=== PATIENT | male | born 1980 | race African-American/Black ===

== ENCOUNTER 2016-07-04 08:25 | Emergency (ER) | payer OTHER ==
[2016-07-04] MEDS ORDERED: Ibuprofen TAB* 800 MG PO ONE (09:52)
--- NOTE | 2016-07-04 10:03 | ED ---
Throat Pain/Nasal Congestion - HPI Summary HPI Summary: 36 male presents with complaints of sore throat, nasal congestion, headache, cough, and sinus pressure that began approximately 1 week ago that has gotten progressively worse. Patient states he has tried taking Dayquil and Tylenol without much relief. The symptoms seem to get worse at night and he has been unable to get some sleep. He also complains of myalgias and body aches. Admits to coughing of phlegm and having pressure in his head and face when bending over. Did not have the flu shot this year. Says he works outside a lot and he does not recall a fever or chills. - History of Current Complaint Chief Complaint: EDUpperRespComplaint Time Seen by Provider: 07/04/16 09:23 Hx Obtained From: Patient Onset/Duration: Sudden Onset Severity: Mild Associated Signs And Symptoms: Positive: Dysphagia, Sinus Discomfort, Nasal Discharge Cough: Sputum Appears - clear, phlegm - Allergies/Home Medications Allergies/Adverse Reactions: Allergies Allergy/AdvReac Type Severity Reaction Status Date / Time No Known Allergies Allergy Verified 07/04/16 10:35 PMH/Surg Hx/FS Hx/Imm Hx Endocrine/Hematology History: Denies: Hx Diabetes Cardiovascular History: Denies: Hx Hypertension Respiratory History: Denies: Hx Asthma - Surgical History Surgery Procedure, Year, and Place: none - Immunization History Date of Influenza Vaccine: 2014 Immunizations Up to Date: Yes Infectious Disease History: No Infectious Disease History: Denies: Traveled Outside the [place] in Last 30 Days - Family History Known Family History: Positive: Diabetes - Social History Alcohol Use: None Substance Use Type: Reports: None Smoking Status (MU): Light Every Day Tobacco Smoker Review of Systems Constitutional: Negative Eyes: Negative Positive: Sore Throat, Nasal Discharge Cardiovascular: Negative Positive: Cough Positive: Diarrhea Genitourinary: Negative Skin: Negative Positive: Headache Psychological: Normal All Other Systems Reviewed And Are Negative: Yes Physical Exam Triage Information Reviewed: Yes Vital Signs On Initial Exam: Initial Vitals Temp Pulse Resp BP Pulse Ox 98.4 F 102 20 127/83 100 07/04/16 08:34 07/04/16 08:34 07/04/16 08:34 07/04/16 08:34 07/04/16 08:34 tachycardia noted Appearance: Positive: Well-Appearing - NAD, sounds congested when talking, No Pain Distress, Well-Nourished Skin: Positive: Warm, Skin Color Reflects Adequate Perfusion, Dry Head/Face: Positive: Normal Head/Face Inspection Eyes: Positive: Normal, EOMI, LILIA, Conjunctiva Clear ENT: Positive: Hearing grossly normal, Pharyngeal erythema, Nasal congestion, TMs normal, Tonsillar swelling Dental: Positive: Percussion Tenderness @ - maxillary and frontal sinuses b/l, Cervical Lymphadenopathy Neck: Positive: Supple, Nontender Respiratory/Lung Sounds: Positive: Clear to Auscultation, Breath Sounds Present. Negative: Rales, Rhonchi, Wheezes Cardiovascular: Positive: Normal, RRR, Pulses are Symmetrical in both Upper and Lower Extremities Abdomen Description: Positive: Nontender, No Organomegaly, Soft Bowel Sounds: Positive: Present Musculoskeletal: Positive: Normal, Strength/ROM Intact Neurological: Positive: Normal, Sensory/Motor Intact, Alert, Oriented to Person Place, Time, CN Intact II-III, Normal Gait Psychiatric: Positive: Normal, Affect/Mood Appropriate - [place] Coma Scale Coma Scale Total: 15 Diagnostics - Vital Signs Vital Signs Temp Pulse Resp BP Pulse Ox 07/04/16 08:52 18 07/04/16 08:34 98.4 F 102 20 127/83 100 - Laboratory Lab Statement: Any lab studies that have been ordered have been reviewed, and results considered in the medical decision making process. EENT Course/Dx - Course Course Of Treatment: Given 800mg ibuprofen for headache and strep/flu obtained due to complaint of symptoms. Both negative. Patient will be treated symptomatically. - Differential Diagnoses Differential Diagnoses: Influenza, Otitis Media, Pharyngitis, Sinusitis, Tonsilitis, URI/Bronchitis - Diagnoses Provider Diagnoses: Upper respiratory infection Discharge - Discharge Plan Condition: Stable Disposition: HOME Prescriptions: Fluticasone NASAL SPRAY 50MCG* [Flonase NASAL SPRAY 50MCG*] 2 spray BOTH NARES DAILY PRN #1 btl PRN Reason: Congestion Patient Education Materials: Upper Respiratory Infection (ED) Forms: *Work Release Referrals: Maeve Estrada MD [Primary Care Provider] - Additional Instructions: Use prescribed nasal spray to help with congestion and inflammation twice daily in both nostrils. Recommend using OTC decongestants such as Mucinex or Dayquil/Nyquil and taking Zicam. Try using a saline nasal spray. Rest and drink plenty of fluids. If symptoms worsen or do not improve please seek medical treatment for further evaluation.
[2016-07-04 11:03] VITALS: BP 132/81
== END 2016-07-04 11:03 | disposition home or self-care (01) ==
LOC: ED 08:25
DX: J06.9 Acute upper respiratory infection, unspecified (principal); R09.81 Nasal congestion; J02.9 Acute pharyngitis, unspecified; R51 Headache; R05 Cough; F17.210 Nicotine dependence, cigarettes, uncomplicated; R19.7 Diarrhea, unspecified
CPT/HCPCS: 87502; 87651; 99282; A9270-GY